=== PATIENT | female | born 1955 | race Caucasian/White ===

== ENCOUNTER → 2016-09-10 | Outpatient (CLI) | payer OTHER ==
--- NOTE | 2016-09-10 10:18 | MM ---
Reason for exam: history of breast cancer, mastectomy. Last mammogram was performed 1 year ago. History: Patient is postmenopausal and has history of breast cancer at age 45. Retro-pectoral silicone gel implants in both breasts, 2003. Malignant mastectomy of the right breast, July 13, 2001. Malignant excisional biopsy of the right breast, May 24, 2001. Cyst aspiration of the right breast. Physical Findings: Nurse did not find any significant physical abnormalities on exam. MG Diag Mamm Implant LT w CAD CC, MLO, and ID view(s) were taken of the left breast. Prior study comparison: September 05, 2015, left breast MG 3d diag mammo imp w/cad LT. September 01, 2014, left breast MG diagnostic mammo LT w CAD. July 06, 2013, left diagnostic mammogram w/CAD. There are scattered fibroglandular densities. Implant and onel views. No significant new findings when compared with previous films. These results were verbally communicated with the patient and result sheet given to the patient on 09/10/16. ASSESSMENT: Negative, BI-RAD 1 RECOMMENDATION: Follow-up diagnostic mammogram of the left breast in 1 year.
== END | disposition home or self-care (01) ==
LOC: RADMAMWWP 09:05
PROVIDERS: ATTEND Family Medicine
DX: Z85.3 Personal history of malignant neoplasm of breast (principal)

== ENCOUNTER → 2017-07-29 | Outpatient (CLI) | payer OTHER ==
--- NOTE | 2017-07-29 11:05 | US ---
EXAMINATION TYPE: US thyroid st tissue head/neck DATE OF EXAM: 07/29/2017 COMPARISON: Prior thyroid ultrasound January 10, 2015 CLINICAL HISTORY: Palpable neck mass right side R22.1. Hx thyroid nodules GLAND SIZE: Right Lobe: 4.0 x 2.4 x 1.4 cm Overall Parenchyma: heterogenous Left Lobe: 4.4 x 2.0 x 1.6 cm Overall Parenchyma: heterogeneous Isthmus Thickness: 0.2 cm NODULES RIGHT: # of nodules measured on right: 1 1. 2.3 X 1.6 x 1.5 cm isoechoic mixed nodule at the lower pole with well-defined margins; . This n odule is wider than tall and shows no intranodular vascularity. Prior size: 2.1 x 1.7 x 1.2 cm LEFT: # of nodules measured on left: 3 1. 1.3 X 1.3 x 0.8 cm isoechoic solid nodule at the lower pole with well-defined margins; . This n odule is wider than tall and shows no intranodular vascularity. Prior size: 0.7 x 0.5 x 0.8 cm 2. 1.0 X 0.8 x 0.6 cm isoechoic solid nodule at the lower pole with well-defined margins; . This no dule is wider than tall and shows no intranodular vascularity. Prior size: Not seen previously 3. 0.8 X 0.8 x 0.8 cm isoechoic solid nodule at the mid pole with poorly defined margins; . This no dule is as wide as tall and shows no intranodular vascularity. Prior size: Not seen previously ISTHMUS: # of nodules measured in the isthmus: 0 Bilateral neck scanned, Right sided lymph node seen =1.3 x 07 x 0.4 cm Left sided lymph nodes seen. Largest = 1.3 x 0.8 x 0.4 cm Thyroid gland remains stable in size and heterogeneous in appearance with dominant right-sided nodule felt stable. A few nodules left thyroid lobe measuring 1 cm or smaller were not marked on prior stud y likely due to underlying heterogeneous tissue. Subcentimeter neck lymph nodes are identified by ray hnologist bilaterally. IMPRESSION: Persistent heterogeneous multinodular normal-sized thyroid. No new greater than 1 cm solid or cystic nodules are evident.
== END | disposition home or self-care (01) ==
LOC: RADUSWWP 10:16
PROVIDERS: ATTEND Family Medicine
DX: E04.2 Nontoxic multinodular goiter (principal); Z88.5 Allergy status to narcotic agent
CPT/HCPCS: 76536

== ENCOUNTER 2017-08-05 12:06 | Day surgery (SDC) | payer OTHER ==
[2017-08-05 13:20] VITALS: RESP 18; TEMP 97.5
[2017-08-05 15:40] VITALS: BP 140/70; PULSE 87
--- NOTE | 2017-08-05 16:02 | US ---
EXAMINATION TYPE: US FNA thyroid DATE OF EXAM: 08/05/2017 COMPARISON: Ultrasound thyroid 08/26/2017 HISTORY: Thyroid nodule. Maximal barrier technique was utilized. After informed consent, skin overlying the lesion was locali zed with ultrasound and the overlying skin prepped and draped. Ultrasound was utilized using sterile technique. Lidocaine was used for local anesthesia. Five passes with a 25-gauge needle were made int o the left nodule and aspirated specimen was submitted to cytology. Following the procedure hemostas is achieved. No immediate complication. The patient discharged in stable condition. IMPRESSION: STATUS POST ULTRASOUND GUIDED FINE NEEDLE ASPIRATION OF LEFT THYROID NODULE, PATHOLOGY IS PENDING. THIS PROCEDURE WAS PERFORMED BY THE UNDERSIGNED.
--- NOTE | 2017-08-05 16:03 | US ---
EXAMINATION TYPE: US FNA thyroid DATE OF EXAM: 08/05/2017 COMPARISON: Ultrasound thyroid 07/29/2017 HISTORY: Right Thyroid nodule. Maximal barrier technique was utilized. After informed consent, skin overlying the lesion was locali zed with ultrasound and the overlying skin prepped and draped. Ultrasound was utilized using sterile technique. Lidocaine was used for local anesthesia. Five passes with a 25-gauge needle were made int o the right nodule and aspirated specimen was submitted to cytology. Following the procedure hemosta sis achieved. No immediate complication. The patient discharged in stable condition. IMPRESSION: STATUS POST ULTRASOUND GUIDED FINE NEEDLE ASPIRATION OF RIGHT THYROID NODULE, PATHOLOGY I S PENDING. THIS PROCEDURE WAS PERFORMED BY THE UNDERSIGNED.
== END 2017-08-05 15:00 | disposition home or self-care (01) ==
LOC: RADPROMAIN 12:06 → EDSTATUS 12:20 → RADPROMAIN 15:00
PROVIDERS: ATTEND Family Medicine
DX: E04.1 Nontoxic single thyroid nodule (principal); R22.0 Localized swelling, mass and lump, head; Z88.5 Allergy status to narcotic agent
CPT/HCPCS: 10022; 76942; 88173; 88305

== ENCOUNTER → 2017-09-11 | Outpatient (CLI) | payer OTHER ==
--- NOTE | 2017-09-11 11:17 | MM ---
Reason for exam: additional evaluation requested from prior study. Last mammogram was performed 1 year ago. History: Patient is postmenopausal and has history of breast cancer at age 45. Retro-pectoral silicone gel implants in both breasts, 2003. Malignant mastectomy of the right breast, July 13, 2001. Malignant excisional biopsy of the right breast, May 24, 2001. Cyst aspiration of the right breast. Physical Findings: Nurse did not find any significant physical abnormalities on exam. MG Diag Mamm Implant LT w CAD CC, MLO, and ID view(s) were taken of the left breast. Prior study comparison: September 10, 2016, left breast MG diag mamm implant LT w CAD. September 05, 2015, left breast MG 3d diag mammo imp w/cad LT. There are scattered fibroglandular densities. No significant new findings when compared with previous films. These results were verbally communicated with the patient and result sheet given to the patient on 09/11/17. ASSESSMENT: Benign, BI-RAD 2 RECOMMENDATION: Routine screening mammogram of the left breast in 1 year.
== END | disposition home or self-care (01) ==
LOC: RADMAMWWP 10:15
PROVIDERS: ATTEND Family Medicine
DX: Z08 Encounter for follow-up examination after completed treatment for malignant neoplasm (principal); Z98.82 Breast implant status; Z85.3 Personal history of malignant neoplasm of breast
CPT/HCPCS: 77065

== ENCOUNTER → 2018-09-13 | Outpatient (CLI) | payer OTHER ==
--- NOTE | 2018-09-13 10:18 | MM ---
Reason for exam: screening (asymptomatic). Last mammogram was performed 1 year ago. History: Patient is postmenopausal and has history of breast cancer at age 45. Retro-pectoral silicone gel implants in both breasts, 2003. Malignant mastectomy of the right breast, July 13, 2001. Malignant excisional biopsy of the right breast, May 24, 2001. Cyst aspiration of the right breast. Physical Findings: A clinical breast exam by your physician is recommended on an annual basis and results should be correlated with mammographic findings. MG 3D Scr Alexis Unilateral W/Cad CC, MLO, and ID view(s) were taken of the left breast. Prior study comparison: September 11, 2017, left breast MG diag mamm implant LT w CAD. September 10, 2016, left breast MG diag mamm implant LT w CAD. No significant changes when compared with prior studies. ASSESSMENT: Benign, BI-RAD 2 RECOMMENDATION: Routine screening mammogram of the left breast in 1 year.
== END | disposition home or self-care (01) ==
LOC: RADMAMWWP 09:42
PROVIDERS: ATTEND Family Medicine
DX: Z12.31 Encounter for screening mammogram for malignant neoplasm of breast (principal)
CPT/HCPCS: 77067

== ENCOUNTER 2020-01-30 14:54 | Emergency (ER) | payer OTHER ==
[2020-01-30] MEDS ORDERED: METOCLOPRAMIDE 5 MG/ML 2 ML VIAL IVP STA (17:15)
[2020-01-30] MEDS ORDERED: DEXAMETHASONE SOD PHOSPHATE 10 MG/ML 1 ML VIAL IV STA (17:15)
[2020-01-30] MEDS ORDERED: diphenhydrAMINE 50 MG/ML 1 ML VIAL IVP STA (17:15)
[2020-01-30 17:38] LABS: Basophils % (A) 0 %; Eosinophils # (A) 0.2 k/uL (0-0.7); Eosinophils % (A) 3 %; HCT 43.8 % (34.0-46.0); HGB 14.2 gm/dL (11.4-16.0); Lymphocytes # (A) 1.8 k/uL (1.0-4.8); Lymphocytes % (A) 25 %; MCH 28.8 pg (25.0-35.0); MCHC 32.4 g/dL (31.0-37.0); MCV 88.9 fL (80.0-100.0); Mean Platelet Volume 7.9; Monocytes # (A) 0.5 k/uL (0-1.0); Monocytes % (A) 7 %; Neutrophils # (A) 4.6 k/uL (1.3-7.7); Neutrophils % (A) 64 %; Platelet Count 190 k/uL (150-450); RBC 4.93 m/uL (3.80-5.40); RDW 12.5 % (11.5-15.5); WBC 7.2 k/uL (3.8-10.6)
[2020-01-30 17:54] LABS: ALT 23 U/L (4-34); AST 31 U/L (14-36); African American GFR (CKD) >90 (>60 ml/min/1.73 sqM); Albumin 3.9 g/dL (3.5-5.0); Alkaline Phosphatase 53 U/L (38-126); Anion Gap 5 mmol/L; Blood Urea Nitrogen 18 mg/dL (7-17); C Reactive Protein <5.0 mg/L (<10.0); Calcium 9.3 mg/dL (8.4-10.2); Carbon Dioxide 31 mmol/L (22-30); Chloride 103 mmol/L (98-107); Glucose 111 mg/dL (74-99); Non-African American GFR(CKD) >90 (>60 ml/min/1.73 sqM); Potassium 4.3 mmol/L (3.5-5.1); Sodium 139 mmol/L (137-145); Total Bilirubin 0.3 mg/dL (0.2-1.3); Total Protein 6.4 g/dL (6.3-8.2)
--- NOTE | 2020-01-30 19:08 | ED ---
General Adult HPI - General Chief complaint: Headache Stated complaint: Headache Time Seen by Provider: 01/30/20 16:18 Source: patient Mode of arrival: ambulatory Limitations: no limitations - History of Present Illness Initial comments: 64-year-old female patient presents to the emergency department today for evaluation of headache. Patient states she's had a headache for the last week. Patient lives on [facility], states that last week she had loss of her peripheral vision on both sides. States it lasted for a few minutes then resolved. States the next day she had loss of peripheral vision in the right eye with some visual disturbance. States that she then developed headache to that side over the right eye and the right lutheran. [place] [facility] evaluation. She states with this she did have nausea, felt dizzy, and "out of it". States that she had full evaluation and workup at that hospital, did spend the night, underwent CT, MRI, and was discharged with diagnosis of migraine with aura. Patient does not have history of migraine headaches, states that she has been taking a migraine formula at home without relief. She did follow up with a neurologist but states that he did not perform an evaluation or let her explain her symptoms. She states that the headache has persisted. She reports intermittent visual disturbance, occasional dizziness, and occasional nausea. She denies numbness, tingly, weakness to extremities. She does have a heart mon itor in place, and has been taking Lipitor as well as aspirin for possible TIA. Patient denies any recent rash, cough, shortness of breath, chest pain, abdominal pain, diarrhea, constipation, back pain, hematuria, dysuria, urinary urgency, urinary frequency, or any other complaints. - Related Data Home Medications Medication Instructions Recorded Confirmed Venlafaxine HCl [Effexor XR] 75 mg PO DAILY 04/02/14 07/28/17 Levothyroxine Sodium [Synthroid] 1 mcg PO DAILY 07/28/17 07/28/17 Cranberry Fruit Concentrate [Azo 250 mg PO DAILY 08/05/17 08/05/17 Cranberry] Allergies Allergy/AdvReac Type Severity Reaction Status Date / Time codeine AdvReac Nausea & Verified 07/28/17 12:14 Vomiting Review of Systems ROS Statement: Those systems with pertinent positive or pertinent negative responses have been documented in the HPI. ROS Other: All systems not noted in ROS Statement are negative. Past Medical History Past Medical History: Cancer, GERD/Reflux, Osteoarthritis (OA), Thyroid Disorder Additional Past Medical History / Comment(s): BREAST CANCER-RIGHT BREAST with surgery, thyroid nodules, recently tx for UTI. History of Any Multi-Drug Resistant Organisms: None Reported Past Surgical History: Breast Surgery, Orthopedic Surgery, Tubal Ligation Additional Past Surgical History / Comment(s): 04/23/16 Anterior cervical decompression fusion C5-6,C6-7. Other surgical hx: Right mastectomy WITH TRAM FLAP, 3 cervical epidurals Past Anesthesia/Blood Transfusion Reactions: Postoperative Nausea & Vomiting (PONV) Additional Past Anesthesia/Blood Transfusion Reaction / Comment(s): TAKES LONG TIME TO WAKE, hypotension Past Psychological History: No Psychological Hx Reported Past Alcohol Use History: None Reported Past Drug Use History: None Reported - Past Family History Father Family Medical History: Cancer Additional Family Medical History / Comment(s): bladder ca/prostate Mother Additional Family Medical History / Comment(s): heart dx General Exam Limitations: no limitations General appearance: alert, in no apparent distress, other (This is a well- developed, well-nourished adult female patient in no acute distress. Vital signs upon presentation are temperature 98.1F. Pulse 105, respirations 18, blood pressure 137/85, pulse ox 100% on room air.) Eye exam: Present: normal appearance, PERRL, EOMI. Absent: scleral icterus, conjunctival injection, nystagmus, periorbital swelling ENT exam: Present: normal exam, normal oropharynx, mucous membranes moist Respiratory exam: Present: normal lung sounds bilaterally. Absent: respiratory distress, wheezes, rales, rhonchi, stridor Cardiovascular Exam: Present: regular rate, normal rhythm, normal heart sounds. Absent: systolic murmur, diastolic murmur, rubs, gallop, clicks GI/Abdominal exam: Present: soft, normal bowel sounds. Absent: distended, tenderness, guarding, rebound, rigid Neurological exam: Present: alert, oriented X3, CN II-XII intact Expanded Speech: Present: fluid speech Motor strength exam: RUE: 5, LUE: 5, RLE: 5, LLE: 5 Psychiatric exam: Present: normal affect, normal mood Skin exam: Present: warm, dry, intact, normal color. Absent: rash Course Vital Signs 01/30/20 01/30/20 01/30/20 15:06 18:11 18:53 Temperature 98.1 F Pulse Rate 105 H 85 81 Respiratory 18 16 16 Rate Blood Pressure 137/85 146/76 143/81 O2 Sat by Pulse 100 97 98 Oximetry 01/30/20 19:59 Temperature 97.7 F Pulse Rate 77 Respiratory 18 Rate Blood Pressure 143/65 O2 Sat by Pulse 98 Oximetry Medical Decision Making - Medical Decision Making 64-year-old female patient presented to the emergency department today for evaluation of headache to the right eye into the right temporal. Physical examination was relatively unremarkable. She is neurologically intact with no focal deficits. Labs reviewed and were unremarkable including CRP and ESR. I did review reports from [facility], showed negative CT angiogram head and neck, CT brain without contrast is negative, and MRI was negative. Patient was given medication here in the emergency department. Upon reevaluation she does report improvement of symptoms. We did discuss possibility of migraine as a cause for her symptoms. She'll be discharged to follow-up with neurology and ophthalmology. She is instructed follow up with her primary care physician for recheck in 1-2 days. Return parameters discussed in detail. She verbalizes understanding. - Lab Data Result diagrams: 01/30/20 17:18 01/30/20 17:18 Lab Results 01/30/20 01/30/20 Range/Units 17:18 17:18 WBC 7.2 (3.8-10.6) k/uL RBC 4.93 (3.80-5.40) m/uL Hgb 14.2 (11.4-16.0) gm/dL Hct 43.8 (34.0-46.0) % MCV 88.9 (80.0-100.0) fL MCH 28.8 (25.0-35.0) pg MCHC 32.4 (31.0-37.0) g/dL RDW 12.5 (11.5-15.5) % Plt Count 190 (150-450) k/uL Neutrophils % 64 % Lymphocytes % 25 % Monocytes % 7 % Eosinophils % 3 % Basophils % 0 % Neutrophils # 4.6 (1.3-7.7) k/uL Lymphocytes # 1.8 (1.0-4.8) k/uL Monocytes # 0.5 (0-1.0) k/uL Eosinophils # 0.2 (0-0.7) k/uL Basophils # 0.0 (0-0.2) k/uL ESR 3 (0-20) mm/hr Sodium 139 (137-145) mmol/L Potassium 4.3 (3.5-5.1) mmol/L Chloride 103 (98-107) mmol/L Carbon Dioxide 31 H (22-30) mmol/L Anion Gap 5 mmol/L BUN 18 H (7-17) mg/dL Creatinine 0.68 (0.52-1.04) mg/dL Est GFR (CKD-EPI)AfAm >90 (>60 ml/min/1.73 sqM) Est GFR (CKD-EPI)NonAf >90 (>60 ml/min/1.73 sqM) Glucose 111 H (74-99) mg/dL Calcium 9.3 (8.4-10.2) mg/dL Total Bilirubin 0.3 (0.2-1.3) mg/dL AST 31 (14-36) U/L ALT 23 (4-34) U/L Alkaline Phosphatase 53 (38-126) U/L C-Reactive Protein <5.0 (<10.0) mg/L Total Protein 6.4 (6.3-8.2) g/dL Albumin 3.9 (3.5-5.0) g/dL Disposition Clinical Impression: Headache, Visual disturbance Disposition: HOME SELF-CARE Condition: Good Instructions (If sedation given, give patient instructions): Acute Headache (ED) Additional Instructions: Rest. Increase fluids. Follow-up with your primary care physician for recheck in 1-2 days. Discuss referral to neurology and ophthalmology. Return to the emergency department immediately for any new, worsening, or concerning symptoms. Is patient prescribed a controlled substance at d/c from ED?: No Referrals: Nonstaff,Physician [Primary Care Provider] - 1-2 days Time of Disposition: 19:42
[2020-01-30 19:21] LABS: Erythrocyte Sedimentation Rate 3 mm/hr (0-20)
[2020-01-30 20:01] VITALS: BP 143/65; PULSE 77; RESP 18; TEMP 97.7
== END 2020-01-30 20:01 | disposition home or self-care (01) ==
LOC: EC 14:54
DX: R51 Headache (principal); H53.9 Unspecified visual disturbance; R42 Dizziness and giddiness; M19.90 Unspecified osteoarthritis, unspecified site; E07.9 Disorder of thyroid, unspecified; Z79.890 Hormone replacement therapy; Z79.899 Other long term (current) drug therapy; Z88.5 Allergy status to narcotic agent; Z98.890 Other specified postprocedural states; Z85.3 Personal history of malignant neoplasm of breast
CPT/HCPCS: 36415; 80053; 85652; 85025; 86140; 99284; 96374; 96375 ×2; J1200; J1100; J2765